=== PATIENT | female | born 1940 | race Caucasian/White ===

== ENCOUNTER 2018-11-10 02:42 | Observation (INO) ==
[2018-11-10] MEDS ORDERED: G.I. COCKTAIL PO ONE ×2 (03:18→09:45)
--- NOTE | 2018-11-10 03:36 | PROVIDER DOCUMENTATION ---
HPI-Chest Pain - General Stated Complaint: CHEST PAIN Time Seen by Provider: 11/10/18 03:30 Source: patient Allergies/Adverse Reactions: Patient Allergies Allergy/AdvReac Type Severity Reaction Status Date / Time No Known Allergies Allergy Verified 10/04/18 13:27 Home Medications: Home Medication List Medication Instructions Recorded Confirmed Last Taken Type Amlodipine Besylate 10 mg PO DAILY 10/04/18 11/10/18 Unknown History Aspirin [Aspir-Low] 81 mg PO DAILY 10/04/18 11/10/18 Unknown History Hydrochlorothiazide 25 mg PO DAILY 10/04/18 11/10/18 Unknown History Levothyroxine [Synthroid] 112 microgm PO DAILY 10/04/18 11/10/18 Unknown History Omeprazole 20 mg PO DAILY 10/04/18 11/10/18 Unknown History Simvastatin 40 mg PO DAILY 10/04/18 11/10/18 Unknown History Garlic 1 ea PO DAILY 11/10/18 11/10/18 Unknown History Lacosamide [Vimpat] 200 mg PO BID PRN PRN 11/10/18 11/10/18 Unknown History Multivit with Iron,Hematinic 1 ea PO DAILY 11/10/18 11/10/18 Unknown History [Central-Vivien] Mv-Mn/Iron/FA/Herbal Cmplx#190 1 ea PO DAILY 11/10/18 11/10/18 Unknown History [Vitamin D3 Complete Caplet] Potassium 1 tab PO DAILY 11/10/18 11/10/18 Unknown History - History of Present Illness-CP Nature of Presenting Problem: patient had history of esophageal spasm presented with epigastric and substernal pain, came in waves, pain was sever that patient was diaphoretic and fainting, then suddenly pain went away, patient asked for GI cocktail. Location: reports: substernal, epigastric Quality of Pain: reports: cramping, throbbing Severity in ED: moderate Timing: still present Context/Activities at Onset: reports: none Modifying Factors: improves with: nothing Associated Symptoms: reports: diaphoresis. denies: fever/chills, headache Prior Chest Pain/Cardiac Workup: reports: no prior chest pain Similar Symptoms Previously?: Yes Review of Systems - Adult - REVIEW OF SYSTEMS - ADULT Constitutional: denies: fever, fatique Eyes: reports: no symptoms reported Ears, Nose, Mouth & Throat: reports: no symptoms reported Cardiovascular: reports: chest pain Respiratory: reports: no symptoms reported Gastrointestinal: reports: see HPI Genitourinary: reports: no symptoms reported Musculoskeletal: reports: no symptoms reported Integumentary: reports: no symptoms reported Neurological: reports: no symptoms reported Psychiatric: reports: no symptoms reported Endocrine: reports: no symptoms reported Hematologic/Lymphatic: reports: no symptoms reported Allergic/Immunologic: reports: no symptoms reported Past History - Adult - PAST MEDICAL HISTORY-ADULT Review of Records: reports: Nursing Assessment Review Physical Exam-General - PHYSICAL EXAM-ADULT Initial Vital Signs Reviewed: Yes - CONSTITUTIONAL General Appearance: alert - EYES Eyes: PERRL/EOMI - HEAD, EARS, NOSE, MOUTH & THROAT HENMT: normocephalic/atraumatic - NECK Neck: non-tender, supple - RESPIRATORY Respiratory: chest non-tender, lungs clear, normal breath sounds, no pleuratic chest pain, no respiratory distress - CARDIOVASCULAR Cardiovascular: regular rate, rhythm, no edema, no gallop, no JVD - GASTROINTESTINAL (ABDOMEN) Abdominal Exam: non tender, soft - LYMPHATIC Lymphatic: no adenopathy - MUSCULOSKELETAL Back Exam: normal inspection, no CVA tenderness, no vertebral tenderness Extremity: normal range of motion, non-tender, normal gait - SKIN Integumentary: normal color - NEUROLOGIC 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 as tested, grossly normal, no motor/sensory deficits - PSYCHIATRIC Psych/Mental Status: normal mood/affect - HEART Score HEART Score: History: Slightly Suspicious HEART Score: ECG: Non-Specific Repolarization Disturbance/LBBB/PM HEART Score: Age: > or = 65 Years HEART Score: Risk Factors for Atherosclerotic Disease: 1 or 2 Risk Factors HEART Score: Troponin: < or = Normal Limit Total HEART Score:: 4 Progress - PLAN OF CARE/RESULTS Progress/Plan/Lab Results: Laboratory Results - last 24 hr 11/10/18 11/10/18 11/10/18 03:25 03:25 03:25 WBC 19.41 H RBC 5.01 Hgb 14.6 Hct 44.0 MCV 87.8 MCH 29.1 MCHC 33.2 RDW Std Deviation 13.0 Plt Count 285 MPV 10.8 H Immature Gran % (Auto) 0.3 Neut % (Auto) 73.8 Lymph % (Auto) 11.7 L Faulk % (Auto) 8.8 Eos % (Auto) 5.1 Baso % (Auto) 0.3 Immature Gran # (Auto) 0.06 H Neut # (Auto) 14.33 H Lymph # (Auto) 2.27 Faulk # (Auto) 1.70 H Eos # (Auto) 0.99 H Baso # (Auto) 0.06 D-Dimer, Quantitative Sodium 141 Potassium 4.0 Chloride 98 Carbon Dioxide 30 Anion Gap 13 BUN 10 Creatinine 0.7 Estimated GFR/1.73 m2 > 60 BUN/Creatinine Ratio 14 Glucose 120 H Calculated Osmolality 281 Calcium 9.5 Total Bilirubin 0.40 AST 41 H ALT 20 Alkaline Phosphatase 70 Troponin T < 0.010 Total Protein 6.8 Albumin 4.2 Globulin 3.0 Albumin/Globulin Ratio 2.0 Lipase 37 Urine Source Urine Color Urine Clarity Urine pH Ur Specific [place] Urine Protein Urine Ketones Urine Blood Urine Nitrite Urine Bilirubin Urine Urobilinogen Urine WBC Urine Microscopic WBC Urine Glucose 11/10/18 11/10/18 11/10/18 03:25 06:34 08:35 WBC RBC Hgb Hct MCV MCH MCHC RDW Std Deviation Plt Count MPV Immature Gran % (Auto) Neut % (Auto) Lymph % (Auto) Faulk % (Auto) Eos % (Auto) Baso % (Auto) Immature Gran # (Auto) Neut # (Auto) Lymph # (Auto) Faulk # (Auto) Eos # (Auto) Baso # (Auto) D-Dimer, Quantitative 0.44 Sodium Potassium Chloride Carbon Dioxide Anion Gap BUN Creatinine Estimated GFR/1.73 m2 BUN/Creatinine Ratio Glucose Calculated Osmolality Calcium Total Bilirubin AST ALT Alkaline Phosphatase Troponin T < 0.010 Total Protein Albumin Globulin Albumin/Globulin Ratio Lipase Urine Source CLEAN CATCH Urine Color YELLOW Urine Clarity SL. CLOUDY A Urine pH 7.0 Ur Specific [place] 1.005 Urine Protein NEGATIVE Urine Ketones NEGATIVE Urine Blood NEGATIVE Urine Nitrite NEGATIVE Urine Bilirubin NEGATIVE Urine Urobilinogen NORMAL Urine WBC TRACE A Urine Microscopic WBC <10 Urine Glucose NEGATIVE Orders Category Date Time Status Admit - [facility] Routine AdmDCTranf 11/10/18 10:31 Active DVT/PE Risk Assess/Protocol [QM] ORDERED Care 11/10/18 10:32 Active Notify MD if DIRECTED Care 11/10/18 10:31 Active Saline Loc NOW Care 11/10/18 04:05 Completed Z-Document. for Tele Applied ORDERED Care 11/10/18 10:32 Completed Heart Healthy Diet Diet 11/10/18 10:32 Active CHEST-PORTABLE [RAD] Stat Exams 11/10/18 04:[address] ABD/PELVIS W/IV CONT ONLY [CT] Stat Exams 11/10/18 08:24 Completed CBC WITH DIFF [HEME] Stat Lab 11/10/18 03:25 Completed CBC WITH NO DIFF [HEME] Routine Lab 11/11/18 06:00 Ordered COMPREHENSIVE METABOLIC PANEL [CHEM] Routine Lab 11/11/18 06:00 Ordered COMPREHENSIVE METABOLIC PANEL [CHEM] Stat Lab 11/10/18 03:25 Completed D-DIMER [COAG] Stat Lab 11/10/18 03:25 Completed LIPASE [CHEM] Stat Lab 11/10/18 03:25 Completed LIPID PROFILE W/DIR LDL [LIPIDS] Routine Lab 11/11/18 06:00 Ordered MAGNESIUM [CHEM] Routine Lab 11/11/18 06:00 Ordered TROPONIN T Stat Lab 11/10/18 03:25 Completed TROPONIN T Stat Lab 11/10/18 06:34 Completed ua [URINALYSIS PL W/POSS RFLX CULT] [URINALYSIS] Stat Lab 11/10/18 08:35 Completed Acetaminophen [Tylenol] Med 11/10/18 10:31 Active 650 mg PO Q6H PRN PRN Aspirin Med 11/11/18 09:00 Active 325 mg PO DAILY Lido/Lin Alk/Al&mg Hydrox [G.i. Cocktail] Med 11/10/18 03:18 Discontinued 30 ml PO NOW ONE Lido/Lin Alk/Al&mg Hydrox [G.i. Cocktail] Med 11/10/18 09:45 Discontinued 30 ml PO NOW ONE Mag Hydrox/Al Hydrox/Simeth [Maalox Plus Liquid] Med 11/10/18 05:04 Discontinued 30 ml PO NOW ONE Nitroglycerin Sl [Nitroglycerin] Med 11/10/18 10:31 Active 0.4 mg SL Q5M PRN PRN Omeprazole [Prilosec] Med 11/11/18 07:00 Active 20 mg PO DAILY@0700 Ondansetron [Zofran] Med 11/10/18 10:31 Active 4 mg IV Q4H PRN PRN Oxygen Device Routine Oth 11/10/18 10:32 Completed Telemetry [OM.EQ] Routine Oth 11/10/18 10:31 Active EKG [EKG] Stat Ther 11/10/18 05:37 Draft Echo Spec/Color Doppler Routine Ther 11/10/18 10:31 Completed Transfer/Admit Order [TRANSFER] Routine Transfer 11/10/18 11:11 Completed Result Diagrams: 11/10/18 03:25 11/10/18 03:25 - REASSESSMENT Reassessment #1 Time Reassessed: 05:05 Status: improving (patient belived stress and pain caused elevated WBC, decline admission, she had history of esophageal spasm before.) Departure - Departure Date of Disposition Decision: 11/10/18 Time of Disposition Decision: 09:00 DIAGNOSIS: Epigastric pain, Esophageal spasm Disposition: HOME 01 Certified Medical Emergency: Emergent Condition: Good - Critical Care Note This patient required my direct & personal management of CC.: No Attestation - Physician/ MIRELLA Attestation Patient care was provided by Advanced Practice Provider:: No The physician spent face to face time with patient:: Yes Advanced Practice Provider documentation review:: Supervising physician onsite and consulted in the evaluation and care of this patient. The physician did have a face to face encounter with the patient.
[2018-11-10 04:33] LABS: BASO# 0.06 X1000 (0.0-0.2); BASO% 0.3 % (0.0-0.8); EOS# 0.99 X1000 (0.0-0.7); EOS% 5.1 % (0.0-10.0); HEMOGLOBIN 14.6 g/dL (12.0-16.0); IMM GRAN# 0.06 X1000 (0.0-0.04); IMM GRAN% 0.3 % (0.0-0.5); LYMPH# 2.27 X1000 (1.2-3.4); LYMPH% 11.7 % (20.5-51.1); MCH 29.1 PG (27-31); MCHC 33.2 g/dL (33-37); MCV 87.8 FL (81-99); MONO% 8.8 % (1.7-9.3); MPV 10.8 FL (7.4-10.4); NEUT# 14.33 X1000 (1.4-6.5); NEUT% 73.8 % (42.2-75.2); PLT 285 X1000 (130-400); RBC 5.01 XMIL (4.2-5.4); WBC 19.41 X1000 (4.8-10.8)
[2018-11-10 04:40] LABS: AGAP 13; ALBUMIN 4.2 g/dL (3.5-5.0); ALKALINE PHOSPHATASE 70 U/L (32-104); BUN 10 mg/dL (8-22); CALCIUM 9.5 mg/dL (8.8-10.2); CHLORIDE 98 mmol/L (98-107); COSMO 281; CREATININE 0.7 mg/dL (0.5-0.9); ESTIMATED GFR > 60; GLUCOSE 120 mg/dL (70-104); GOT 41 U/L (10-30); GPT 20 U/L (10-36); LIPASE 37 U/L (13-60); SODIUM 141 mmol/L (136-145); TCO2 30 mmol/L (25-35); TOTAL PROTEIN 6.8 g/dL (6.3-8.3)
[2018-11-10] MEDS ORDERED: MAALOX PLUS LIQUID PO ONE (05:04)
--- NOTE | 2018-11-10 06:36 | EKG Report ---
Test Performed on : 11/10/2018 02:52:38 AM Test Reason : cp Blood Pressure : / mmHG Vent. Rate : 063 BPM Atrial Rate : 063 BPM P-R Int : 132 ms QRS Dur : 098 ms QT Int : 462 ms P-R-T Axes : 060 005 109 degrees QTc Int : 472 ms Normal sinus rhythm. ST & T wave abnormality, consider anterolateral ischemia Abnormal ECG No previous ECGs available Unconfirmed Result
--- NOTE | 2018-11-10 07:36 | Diag Imaging Result Doc PS360 ---
EXAM: CHEST-PORTABLE HISTORY: chest pain TECHNIQUE: Portable chest single view COMPARISON: None. FINDINGS: The lungs are well expanded. The heart is not enlarged. The vessels are not distended. Mild increased markings in the left costophrenic angle. No effusion identified. IMPRESSION: Minimal atelectasis versus an infiltrate in the left costophrenic angle Electronically signed by Chilango Gaviria 11/10/2018 7:33 AM
[2018-11-10 09:12] LABS: BILIRUBIN URINE NEGATIVE (NEGATIVE); BLOOD URINE NEGATIVE (NEGATIVE); CLARITY SL. CLOUDY (CLEAR); COLOR YELLOW; GLUCOSE URINE NEGATIVE (NEGATIVE); KETONE URINE NEGATIVE (NEGATIVE); LEUKOCYTES URINE TRACE (NEGATIVE); NITRITE URINE NEGATIVE (NEGATIVE); PROTEIN URINE NEGATIVE (NEGATIVE); SP GRAVITY URINE 1.005; URINE SOURCE CLEAN CATCH; UROBILINOGEN URINE NORMAL
[2018-11-10 09:13] LABS: URINE WBC <10 /HPF (<10)
--- NOTE | 2018-11-10 09:25 | Diag Imaging Result Doc PS360 ---
EXAM: CT ABD/PELVIS W/IV CONT ONLY HISTORY: pain TECHNIQUE: CT abdomen and pelvis with intravenous contrast. COMPARISON: None. FINDINGS: The gallbladder has been removed. There is fatty infiltration of the liver. Normal spleen, pancreas, and adrenal glands. The left kidney has been removed. Normal right kidney. No hydronephrosis. No aortic aneurysm. Prominent atherosclerosis. Normal appendix. No abscess. No bowel obstruction. There is stool throughout the colon. There is a left lateral wall abdominal hernia containing descending colon. No obstruction or wall thickening. There are scattered colonic diverticula. Urinary bladder is moderately distended and is normal. Normal uterus. Prominent degenerative spine changes. IMPRESSION: 1.Cholecystectomy 2.Mild fatty infiltration of the liver 3.Left nephrectomy 4.Colonic diverticulosis 5.Mild constipation 6.Left lateral wall hernia, but no obstruction This exam was performed using automated exposure control, adjustment of mA or kV according to patient size, and/or use of iterative reconstruction technique. Electronically signed by Chilango Gaviria 11/10/2018 9:23 AM
[2018-11-10] MEDS ORDERED: NITROGLYCERIN SL PRN (10:31)
[2018-11-10] MEDS ORDERED: TYLENOL PO PRN (10:31)
[2018-11-10] MEDS ORDERED: ZOFRAN IV PRN (10:31)
--- NOTE | 2018-11-10 15:39 | HISTORY AND PHYSICAL ---
CHIEF COMPLAINT: Chest pain and syncope. HISTORY OF PRESENT ILLNESS: The patient presented to the hospital with chest pain. Notes that she was at home. She is an elderly female who is still working. When she attempted to get up and walk around the house this morning, she felt lightheaded and felt as though she was going to pass out. States the pain was epigastric, substernal. She thinks it may be her esophageal spasms as she did feel diaphoretic, and felt as though she was going to pass out in pain. States pain only lasted for few minutes, but the lightheadedness lasted several minutes. ALLERGIES: No known drug allergies. MEDICATIONS: Amlodipine 10 mg, aspirin 81, hydrochlorothiazide 25, Synthroid 100, omeprazole 20, potassium 91, simvastatin 40. PAST MEDICAL HISTORY: High cholesterol, hypertension, hypothyroidism, esophageal spasm. REVIEW OF SYSTEMS: As noted above. Denies any fevers, chills, cough, congestion. Denies other upper respiratory type symptoms. Denies headaches, blurred vision, change in vision. Denies any focalized numbness, tingling, weakness in her extremities FAMILY HISTORY: Noncontributory. SOCIAL HISTORY: Patient lives at home. She is still employed. Does not smoke or drink. PHYSICAL EXAMINATION: VITAL SIGNS: Reviewed. Temperature 98 degrees, pulse 63, respiratory rate 18, BP 138/65, satting 97% on room air. GENERAL: Patient is awake, alert. She is in no current respiratory distress. HEENT: Normocephalic. NECK: Supple. CARDIOVASCULAR: Regular rate. No murmurs. CHEST: Clear, nonlabored. ABDOMEN: Soft, nondistended, nontender. EXTREMITIES: Moves all extremities. NEUROLOGIC: No focal changes. SKIN: Warm and dry. No rashes. LABS: WBC 19. CMP normal. First 2 sets of troponins are negative. ASSESSMENT: 1. Leukocytosis of undetermined origin. 2. Presyncope. 3. Chest pain. 4. Hypertension. 5. Hypothyroidism. 6. High cholesterol. PLAN: We will admit patient to the hospital. We will continue GI cocktail as needed. We will continue to rule out [place]. I will follow her white count. Further orders as needed. cc: Rodolfo Whitney MD
--- NOTE | 2018-11-10 16:34 | ECHO REPORT ---
ORDER DATE: 11/10/2018 INDICATION FOR THE STUDY: Syncope. FINDINGS: 1. The right atrium appears normal in size. 2. Mild tricuspid regurgitation. RV systolic pressure of 49. 3. Normal RV size and systolic function. 4. Trace pulmonic insufficiency. 5. Normal left atrial size with a dimension of 3.6 cm. 6. No mitral prolapse. Mild mitral regurgitation. No evidence of mitral stenosis. 7. Normal LV size, end-diastolic dimension of 4.8. Normal wall thicknesses with a posterior and interventricular septal wall thickness 0.9 and 1.0 cm respectively. Normal LV systolic function. Estimated EF of 65% with normal wall motion. 8. Aortic valve opens well. It is trileaflet. There is no clear evidence of stenosis or insufficiency. 9. The aorta appears normal visualized segments. 10. There is an anterior echo-free space which is more suggestive of pericardial fat. There is no clear evidence of pericardial effusion on this study. cc: MD Rodolfo Vidal MD
[2018-11-11 06:12] LABS: HEMATOCRIT 40.9 % (37.0-47.0); HEMOGLOBIN 13.6 g/dL (12.0-16.0); MCH 29.3 PG (27-31); MCHC 33.3 g/dL (33-37); MCV 88.1 FL (81-99); MPV 10.7 FL (7.4-10.4); RBC 4.64 XMIL (4.2-5.4); RDW 13.1 % (11.5-14.5); WBC 9.88 X1000 (4.8-10.8)
[2018-11-11 06:31] LABS: AGAP 9; ALBUMIN 3.6 g/dL (3.5-5.0); ALKALINE PHOSPHATASE 71 U/L (32-104); BUN 14 mg/dL (8-22); CALCIUM 9.1 mg/dL (8.8-10.2); CHLORIDE 103 mmol/L (98-107); COSMO 282; CREATININE 0.8 mg/dL (0.5-0.9); ESTIMATED GFR > 60; GLUCOSE 96 mg/dL (70-104); GOT 49 U/L (10-30); GPT 47 U/L (10-36); POTASSIUM 3.7 mmol/L (3.5-5.1); SODIUM 141 mmol/L (136-145); TCO2 29 mmol/L (25-35); TOTAL PROTEIN 6.1 g/dL (6.3-8.3)
[2018-11-11] MEDS ORDERED: PRILOSEC PO SCH (07:00)
[2018-11-11 07:24] VITALS: BP 138/66
[2018-11-11] MEDS ORDERED: ASPIRIN PO SCH (09:00)
--- NOTE | 2018-11-11 15:25 | DISCHARGE SUMMARY ---
ADMISSION DATE: 11/10/2018 DISCHARGE DATE: 11/11/2018 DISCHARGE DIAGNOSES: 1. Leukocytosis, improved. 2. Presyncope, resolved. 3. Chest pain, resolved. 4. Hypertension. 5. High cholesterol. 6. Hypothyroidism. 7. Chronic esophageal reflux. CONSULTATIONS: None PROCEDURE: None. BRIEF HOSPITAL COURSE: The patient is an elderly female who presented to the hospital, treated in the usual fashion, placed on telemetry, and ruled out [place]. Thankfully, after 1 bag of fluids, she has had no further syncopal episodes. She states she is feeling better, notes that her nausea is improved, and therefore will be discharged home. DISPOSITION: Patient will be discharged home. FOLLOW-UP: She will follow up outpatient with primary care of her choice. DISCHARGE INSTRUCTIONS: Discussed her to continue to take it easy over the next few days. Certainly the recent heat and humidity may have played a role in her hydration status, as well as her syncopal episodes. We will continue to follow. No changes were made on her chronic home medications. cc: Rodolfo Whitney MD
== END 2018-11-11 11:50 | disposition home or self-care (01) ==
LOC: P.ED 02:42 → P.MEDSURG 02:42
PROVIDERS: ATTEND Family Medicine
CPT/HCPCS: 71010; 71045; 74177; 80053; 80061; 81001; 83690; 83721; 83735; 84484; 85025; 85027; 85379; 93005; 93306; 94761; A9270; Q9967